=== PATIENT | male | born 1995 | race Caucasian/White ===

== ENCOUNTER 2016-08-23 17:36 | Day surgery (SDC) | payer OTHER ==
[~2016-08-23 17:36] MED LIST: HYDROCODONE/APAP 5/325 TAB PO SCH
--- NOTE | 2016-08-23 17:55 | EDPHY ---
H & P Time Seen by Provider: 08/23/16 17:43 HPI/ROS: CHIEF COMPLAINT: Back laceration HISTORY OF PRESENT ILLNESS: The patient is a 21-year-old man who was intoxicated and fell backwards onto a glass lawn or new meant. It did break and cut his back. He denies other injuries. REVIEW OF SYSTEMS: Constitutional: denies: chills, fever, recent illness, recent injury EENTM: denies: blurred vision, double vision, nose congestion Respiratory: denies: cough, shortness of breath Cardiac: denies: chest pain, irregular heart rate, lightheadedness, palpitations Gastrointestinal/Abdominal: denies: abdominal pain, diarrhea, nausea, vomiting, blood streaked stools Genitourinary: denies: dysuria, frequency, hematuria, pain Musculoskeletal: See HPI Skin: see HPI Neurological: denies: headache, numbness, paresthesia, tingling, dizziness, weakness Hematologic/Lymphatic: denies: blood clots, easy bleeding, easy bruising Immunologic/allergic: denies: HIV/AIDS, transplant Nursing assessment reviewed Vital signs reviewed normal Patient is alert not anxious or lethargic and in no distress HEAD: shows no evidence of trauma no raccoon eyes, no Mckeon sign. NECK: is nontender and has painless range of motion, trachea is midline, NEXUS criteria negative (no midline tenderness no distracting injury no altered mental status no recent alcohol and no focal neuro deficits EYES: pupils equal round reactive to light and accommodating, extraocular muscles are intact no palsy or entrapment, no subconjunctival hemorrhage ENT: Normal external inspection, airway intact, no dental or oral injuries, no clotted nasal blood, no septal hematoma, no hemotympanum CARDIOVASCULAR: heart sounds normal, not tachycardic or bradycardic, Chest is non-tender no rib tenderness no palpable fracture, no crepitus, no subcutaneous emphysema RESPIRATORY: no splinting, no paradoxical movements, gross sounds normal, no wheezes no rales no rhonchi, no respiratory distress ABDOMEN: Abdomen is nontender in all 4 quadrants no guarding no rebound, no distention, no hernias, no masses or bruits. GENITAL/RECTAL: Normal external inspection, Stable pelvis NEUROLOGIC/PSYCH: Oriented x3, cranial nerves normal as assessed, face symmetrical, sensation normal, motor grossly normal, not perseverating, cranial nerves II through XII intact normal reflexes Anup Coma score: 15 SKIN: 4 cm avulsion/laceration to right lower back. Approximately 4 cm deep into the muscle, examined by a sterile gloved finger. No foreign bodies appreciated. nondiaphoretic. BACK: See above EXTREMITIES: Atraumatic, pelvis stable, nontender able to bear weight, no pulse deficit, normal range of motion, normal color and temperature Source: Patient Exam Limitations: No limitations - Medical/Surgical History Hx Asthma: No Hx Chronic Respiratory Disease: No Hx Diabetes: No Hx Cardiac Disease: No Hx Renal Disease: No Hx Cirrhosis: No Hx Alcoholism: No - Family History Significant Family History: Hypertension - Social History Alcohol Use: Occasionally Drug Use: Marijuana Constitutional: Initial Vital Signs Temperature (C) 36.4 C 08/23/16 17:54 Heart Rate 122 H 08/23/16 17:54 Respiratory Rate 16 08/23/16 17:54 Blood Pressure 126/78 H 08/23/16 17:54 O2 Sat (%) 98 08/23/16 17:54 O2 Delivery Mode Room Air Allergies/Adverse Reactions: No Known Allergies Allergy (Unverified 08/23/16 17:53) Home Medications: Medication Instructions Recorded NK [No Known Home Meds] 08/23/16 Medical Decision Making ED Course/Re-evaluation: 6:00 p.m. soon after arrival the patient was examined by the PA and then myself and called a full trauma because a penetrating wound to the torso. Dr Tarah Lynn evaluated the patient and decided to take him to the operating room for exploration and closure. She does not wish to have any imaging done. Differential Diagnosis: Partial list of the Differential diagnosis considered include but were not limited to; laceration, stab wound, and although unlikely based on the history and physical exam, I also considered fracture, foreign body, infection. - Data Points Laboratory Results: Laboratory Results 08/23/16 17:55 08/23/16 17:55 08/23/16 08/23/16 08/23/16 17:55 17:55 17:55 WBC RBC Hgb POC Hgb Hct POC Hct MCV MCH MCHC RDW Plt Count MPV Neut % (Auto) Lymph % (Auto) [place] % (Auto) Eos % (Auto) Baso % (Auto) Nucleat RBC Rel Count Absolute Neuts (auto) Absolute Lymphs (auto) Absolute Monos (auto) Absolute Eos (auto) Absolute Basos (auto) Absolute Nucleated RBC Immature Gran % Immature Gran # PT 12.8 SEC SEC (12.0-15.0) INR 0.97 (0.83-1.16) APTT 28.9 SEC SEC (23.0-38.0) POC Sodium Sodium 146 mEq/L H mEq/L (134-144) POC Potassium Potassium 4.5 mEq/L mEq/L (3.5-5.2) POC Chloride Chloride 105 mEq/L mEq/L (97-110) Carbon Dioxide 24 mEq/l mEq/l (22-31) Anion Gap 17 mEq/L H mEq/L (8-16) POC BUN BUN 11 mg/dL mg/dL (7-23) Creatinine 0.8 mg/dL mg/dL (0.7-1.3) POC Creatinine Estimated GFR > 60 Glucose 99 mg/dL mg/dL (70-100) POC Glucose Calcium 9.6 mg/dL mg/dL (8.5-10.4) Ethyl Alcohol 250 mg/dL H mg/dL (0-10) Patient ABO/Rh O POSITIVE Antibody Screen NEGATIVE 08/23/16 08/23/16 17:55 17:53 WBC 7.91 10^3/uL 10^3/uL (3.80-9.50) RBC 5.28 10^6/uL 10^6/uL (4.40-6.38) Hgb 15.7 g/dL g/dL (13.7-17.5) POC Hgb 16.7 gm/dL gm/dL (14.5-17.3) Hct 47.8 % % (40.0-51.0) POC Hct 49 % % (42.8-50.6) MCV 90.5 fL fL (81.5-99.8) MCH 29.7 pg pg (27.9-34.1) MCHC 32.8 g/dL g/dL (32.4-36.7) RDW 12.7 % % (11.5-15.2) Plt Count 263 10^3/uL 10^3/uL (150-400) MPV 10.8 fL fL (8.7-11.7) Neut % (Auto) 60.8 % % (39.3-74.2) Lymph % (Auto) 27.4 % % (15.0-45.0) [place] % (Auto) 9.2 % % (4.5-13.0) Eos % (Auto) 0.8 % % (0.6-7.6) Baso % (Auto) 1.4 % % (0.3-1.7) Nucleat RBC Rel Count 0.0 % % (0.0-0.2) Absolute Neuts (auto) 4.81 10^3/uL 10^3/uL (1.70-6.50) Absolute Lymphs (auto) 2.17 10^3/uL 10^3/uL (1.00-3.00) Absolute Monos (auto) 0.73 10^3/uL 10^3/uL (0.30-0.80) Absolute Eos (auto) 0.06 10^3/uL 10^3/uL (0.03-0.40) Absolute Basos (auto) 0.11 10^3/uL H 10^3/uL (0.02-0.10) Absolute Nucleated RBC 0.00 10^3/uL 10^3/uL (0-0.01) Immature Gran % 0.4 % % (0.0-1.1) Immature Gran # 0.03 10^3/uL 10^3/uL (0.00-0.10) PT INR APTT POC Sodium 146 mEq/L H mEq/L (134-144) Sodium POC Potassium 4.0 mEq/L mEq/L (3.3-5.0) Potassium POC Chloride 104 mEq/L mEq/L (96-108) Chloride Carbon Dioxide Anion Gap POC BUN 10 mg/dL mg/dL (7-23) BUN Creatinine POC Creatinine 1.2 mg/dL mg/dL (0.8-1.5) Estimated GFR Glucose POC Glucose 106 mg/dL H mg/dL (70-100) Calcium Ethyl Alcohol Patient ABO/Rh Antibody Screen Medications Given: Discontinued Medications Cefazolin Sodium/Dextrose (Ancef 2 Gm (Premix)) 100 mls @ 200 mls/hr IV EDNOW ONE PRN Reason: Protocol Stop: 08/23/16 18:32 Last Admin: 08/23/16 18:15 Dose: 100 mls Point of Care Test Results: 08/23/16 17:53 POC Sodium 146 H POC Potassium 4.0 POC Chloride 104 POC BUN 10 POC Creatinine 1.2 POC Glucose 106 H Departure - Departure Disposition: To OP Cath/Surgery Clinical Impression: Puncture wound Condition: Fair
[2016-08-23 17:59] VITALS: RESP 16
[2016-08-23] MEDS ORDERED: ceFAZolin 2 GM/DEXTROSE 100 ML IV ONE (18:03)
[2016-08-23 18:14] LABS: % IMMATURE GRANULYOCYTES 0.4 % (0.0-1.1); ABSOLUTE IMMATURE GRANULOCYTES 0.03 10^3/uL (0.00-0.10); ADD DIFF? NO; ADD MORPH? NO; ADD SCAN? NO; ATYPICAL LYMPHOCYTE FLAG 10 (0-99); FRAGMENT RBC FLAG 0 (0-99); HEMATOCRIT 47.8 % (40.0-51.0); HEMOGLOBIN 15.7 g/dL (13.7-17.5); LEFT SHIFT FLG 0 (0-99); LIPEMIA HEMOLYSIS FLAG 80 (0-99); MEAN CELL HEMOGLOBIN 29.7 pg (27.9-34.1); MEAN CELL HEMOGLOBIN CONCENTR. 32.8 g/dL (32.4-36.7); MEAN CELL VOLUME 90.5 fL (81.5-99.8); MEAN PLATELET VOLUME 10.8 fL (8.7-11.7); PLATELET CLUMPS FLAG 0 (0-99); PLATELET COUNT 263 10^3/uL (150-400); RED BLOOD CELL COUNT 5.28 10^6/uL (4.40-6.38); RED CELL DISTRIBUTION WIDTH 12.7 % (11.5-15.2)
[2016-08-23 18:27] LABS: INR 0.97 (0.83-1.16); PROTIME(PATIENT) 12.8 SEC (12.0-15.0)
[2016-08-23 18:28] LABS: APTT 28.9 SEC (23.0-38.0)
[2016-08-23 18:34] LABS: ANION GAP 17 mEq/L (8-16); CALCIUM 9.6 mg/dL (8.5-10.4); CARBON DIOXIDE 24 mEq/l (22-31); CHLORIDE 105 mEq/L (97-110); CREATININE 0.8 mg/dL (0.7-1.3); ETHANOL SERUM 250 mg/dL (0-10); GLOMERULAR FILTRATION RATE > 60; GLUCOSE 99 mg/dL (70-100); POTASSIUM 4.5 mEq/L (3.5-5.2); SODIUM 146 mEq/L (134-144)
[2016-08-23] MEDS ORDERED: BUPIVACAINE 0.5% 30 ML SDV ONE (18:34)
[2016-08-23 19:05] VITALS: BP 138/72; PULSE 108; TEMP 100; O2SAT 97
[2016-08-23] MEDS ORDERED: fentaNYL 100 MCG/2 ML INJ ONE ×3 (19:07→20:41)
[2016-08-23] MEDS ORDERED: PROPOFOL/EMULSION 500 MG/50 ML BOTTLE IV ONE (19:09)
--- NOTE | 2016-08-23 19:28 | GHP ---
[f rep st] HISTORY AND PHYSICAL DATE OF ADMISSION: 08/23/2016 CHIEF COMPLAINT: Trauma activation, penetrating wound. HISTORY OF PRESENT ILLNESS: The patient is a 21-year-old, who was at the [facility] celebrating hi s sisters 21st birthday earlier today. They had bottomless mimosas and then returned to her place a nd had several more beers. He was outside and fell on a lawn ornament about 30 minutes prior to arr ival and sustained a large laceration to his back. They immediately came to the emergency room. PAST MEDICAL HISTORY: None. PAST SURGICAL HISTORY: Finger surgery. MEDICATIONS: None. ALLERGIES: No known drug allergies. SOCIAL HISTORY: He does not use drugs. He does drink alcohol. He is graduating this semester with a degree in business management. 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 He does not smoke regularly but used tobacco products today. FAMILY HISTORY: Noncontributory. REVIEW OF SYSTEMS: Significant for pain by his back. PHYSICAL EXAMINATION: VITAL SIGNS: 36.4, 122-126 over 78, 98% room air. GENERAL: Pleasantly into xicated man with sister at bedside. HEENT: Normocephalic. No gross hearing deficits. Mucous memb ranes moist. Pupils equal and round. No scleral icterus. LUNGS: Clear to auscultation bilaterall y. No increased work of breathing. CARDIAC: Tachycardic. ABDOMEN: Soft. BACK: He has at least a 5 x 3 x 3 cm laceration with active bleeding to the right of his spine in the lumbar region. EXTR EMITIES: Moves all extremities. : Normal male genitalia. NEURO: Grossly intact. LABORATORY DATA: Results reviewed and is significant for blood alcohol level of 250. IMPRESSION AND PLAN: The patient is a 21-year-old, status post unintentional laceration by a lawn o rnament. Due to the continued bleeding and the depth of the wound, I will take him to the operating room to explore this wound and wash it out. The risks and benefits, including but not limited to s troke, heart attack, , blood clots, infection, bleeding, need for additional procedures, were d iscussed. I feel that this case has been important enough to warrant a 2nd crew coming in as that h e is having continuous bleeding. /[id number]/MODL
[2016-08-23] MEDS ORDERED: ROCURONIUM 100 MG/10 ML VIAL ONE (19:53)
[2016-08-23] MEDS ORDERED: HYDROCODONE/APAP 5/325 TAB ONE (21:15)
--- NOTE | 2016-08-24 08:44 | GOP ---
[f rep st] OPERATIVE REPORT DATE OF OPERATION: 08/23/2016 SURGEON: Milena Lynn MD ANESTHESIA: General. ANESTHESIOLOGIST: Dr. Nicolás Rooney. PREOPERATIVE DIAGNOSIS: Penetrating trauma to the lower back. POSTOPERATIVE DIAGNOSIS: Penetrating trauma to the lower back. PROCEDURE PERFORMED: Debridement of deep laceration to his back with complex closure. FINDINGS: penetrated fascia with active bleeding SPECIMENS: None. ESTIMATED BLOOD LOSS: 50 cc. INDICATIONS: Henrique Puckett is a 21-year-old man who was intoxicated and fell on a lawn ornament. He sustained a deep laceration to his back by glass. DESCRIPTION OF PROCEDURE: Henrique was brought into the operating room, placed supine on the table, and general anesthesia was administered. He was then placed in the prone position. His back was prepped with Betadine and draped in the usual sterile fashion. The wound traveled several cm in every direction. The final wound measured 15 x 6 x 4 cm. I explored the wound. The thoracolumbar fascia was violated as well as the fascia with the serratus muscle. There was diffuse oozing from the longissimus thoracic muscle and likely the spinalis as well. Hemostasis was achieved with electrocautery. Esthela was placed in the wound. The deep layer of the muscle was closed with 2- 0 Vicryl. Each of the fascial layers were closed with 0 Vicryl. The subcutaneous tissue was closed with 2-0 Vicryl, followed by 3-0 Vicryl, 4-0 Monocryl, and finally I reinforced this with 2-0 nylon. Antibiotic ointment and a dressing was applied. /[id number]/MODL MTDD
== END 2016-08-23 22:40 | disposition home or self-care (01) ==
LOC: UNDOADMOB 18:13 → FSGY 19:05
PROVIDERS: ATTEND Surgery
PROC: 0JQ70ZZ Repair Back Subcutaneous Tissue and Fascia, Open Approach (ICD-10-PCS; principal; 2016-08-23 19:12)
DX: S31.010A Laceration without foreign body of lower back and pelvis without penetration into retroperitoneum, initial encounter (principal); W01.110A Fall on same level from slipping, tripping and stumbling with subsequent striking against sharp glass, initial encounter; Y92.017 Garden or yard in single-family (private) house as the place of occurrence of the external cause; Y99.8 Other external cause status; F10.10 Alcohol abuse, uncomplicated; I10 Essential (primary) hypertension
CPT/HCPCS: 82947-QW; G0480; J0690; J2704; J3010